=== PATIENT | female | born 1965 | race Caucasian/White ===

== ENCOUNTER 2019-09-12 16:05 | Outpatient (CLI) | payer OTHER, SELFPAY ==
--- NOTE | ~2019-09-12 | MM_ITS ---
EXAMINATION: MM screening [facility] BI w zen HISTORY: Screening mammogram TECHNIQUE: Craniocaudal and mediolateral oblique 3-D tomosynthesis images were obtained and synthetic 2-D images were generated. CAD analysis was submitted and interpreted. COMPARISON: 02/13/2008 BREAST PARENCHYMAL COMPOSITION: The breasts are heterogeneously dense, which may obscure small masses . FINDINGS: RIGHT BREAST: A mass is present in the anterior third of the breast 2.5 cm deep to the nipple. LEFT BREAST: There is possible architectural distortion of the upper breast best appreciated 7.8 cm f rom the nipple in the middle third of the breast on the mediolateral oblique view. IMPRESSION: 1. Bilateral breast findings as described above. 2. Additional mammographic views and possible breast ultrasound are recommended. BI-RADS Category 0: Incomplete: Needs additional imaging evaluation. Reviewed, dictated and finalized at location A. CIAN IMPRESSION: 1. Bilateral breast findings as described above. 2. Additional mammographic views and possible breast ultrasound are recommended . BI-RADS Category 0: Incomplete: Needs additional imaging evaluation.
== END 2019-09-12 16:06 | disposition home or self-care (01) ==
LOC: ANHIMG 16:08
PROVIDERS: PCP Family Medicine Adolescent Medicine; Visit Provider Obstetrics & Gynecology
DX: Z12.31 Encounter for screening mammogram for malignant neoplasm of breast (principal); N63.10 Unspecified lump in the right breast, unspecified quadrant; R92.8 Other abnormal and inconclusive findings on diagnostic imaging of breast
CPT/HCPCS: 77063; 77067

== ENCOUNTER 2019-10-08 11:29 | Outpatient (CLI) | payer OTHER, SELFPAY ==
--- NOTE | ~2019-10-08 | MMUS_ITS ---
EXAMINATION: MM diagnostic mammo BI, US breast RT limited HISTORY: Follow-up breast asymmetries TECHNIQUE: Additional 3-D tomosynthesis images of the breasts were performed and synthetic 2-D images were generated. CAD analysis was submitted and interpreted. High resolution Limited right breast ult rasound was performed. COMPARISON: 09/12/2019 FINDINGS: MAMMOGRAPHIC FINDINGS: The breasts are heterogenously dense, which may obscure small masses. There are no suspicious masses, calcifications or architectural distortion in the left breast to suggest malignancy. In the subareol ar location of the right breast there is a focal 1 cm mass partially obscured by dense fibroglandular tissue. ULTRASOUND: Limited right breast ultrasound: In the periareolar location of the right breast there is a cluster of cysts measuring 11 mm maximum d imension corresponding to the mammographic finding. No suspicious masses to suggest malignancy. IMPRESSION: 1. No evidence for malignancy in either breast. 2. Routine yearly screening mammogram and regular clinical breast examination are recommended. BI-RADS Category 2: Benign finding(s). Reviewed, dictated and finalized at location A. IMPRESSION: 1. No evidence for malignancy in either breast. 2. Routine yearly screening mammogram and regular clinical breast examination a re recommended. BI-RADS Category 2: Benign finding(s).
== END 2019-10-08 11:30 | disposition home or self-care (01) ==
LOC: ANHIMG 11:32
PROVIDERS: PCP Family Medicine Adolescent Medicine; Visit Provider Obstetrics & Gynecology
DX: R92.8 Other abnormal and inconclusive findings on diagnostic imaging of breast (principal)
CPT/HCPCS: 76642; 77066

== ENCOUNTER 2020-11-04 15:45 | Outpatient (CLI) | payer OTHER, SELFPAY ==
--- NOTE | ~2020-11-04 | MM_ITS ---
EXAMINATION: MM screening [facility] BI w zen HISTORY: Screening TECHNIQUE: Craniocaudal and mediolateral oblique 3-D tomosynthesis images were obtained and synthetic 2-D images were generated. CAD analysis was submitted and interpreted. COMPARISON: 10/08/2019 and 09/12/2019 BREAST PARENCHYMAL COMPOSITION: There are scattered areas of fibroglandular density. FINDINGS: Stable appearance to the periareolar right breast mass which was previously characterized a s a cyst by ultrasound. There are no new masses, calcifications or architectural distortion to sugges t malignancy. There is no evidence of suspicious mass, calcification, or architectural distortion to suggest malignancy in either breast. There has been no suspicious interval change. IMPRESSION: 1. No mammographic evidence of malignancy. 2. Recommend routine screening mammography in one year. BI-RADS Category 2: Benign finding(s). Reviewed, dictated and finalized at location A.
== END 2020-11-04 15:46 | disposition home or self-care (01) ==
LOC: ANHIMG 15:48
PROVIDERS: PCP Family Medicine Adolescent Medicine; Visit Provider Obstetrics & Gynecology
DX: Z12.31 Encounter for screening mammogram for malignant neoplasm of breast (principal)
CPT/HCPCS: 77063; 77067

== ENCOUNTER 2021-12-24 15:38 | Outpatient (CLI) | payer OTHER, SELFPAY ==
--- NOTE | ~2021-12-24 | MM_ITS ---
EXAMINATION: MM screening [facility] BI w zen HISTORY: Screening mammogram TECHNIQUE: Craniocaudal and mediolateral oblique 3-D tomosynthesis images were obtained and synthetic 2-D images were generated. CAD analysis was submitted and interpreted. COMPARISON: 11/04/2020 bilateral screening mammogram 10/08/2019 bilateral diagnostic mammogram and limited right breast ultrasound 09/12/2019 bilateral screening mammogram BREAST PARENCHYMAL COMPOSITION: There are scattered areas of fibroglandular density. FINDINGS: Scattered bilateral benign calcifications. There is no evidence of suspicious mass, calcification, or architectural distortion to suggest malignancy in either breast. There has been no suspicious interv al change. IMPRESSION: 1. No mammographic evidence of malignancy. 2. Recommend routine screening mammography in one year. BI-RADS Category 2: Benign finding(s). Reviewed, dictated and finalized at location A.
== END 2021-12-24 15:39 | disposition home or self-care (01) ==
PROVIDERS: PCP Family Medicine Adolescent Medicine; Visit Provider Obstetrics & Gynecology
DX: Z12.31 Encounter for screening mammogram for malignant neoplasm of breast (principal)
CPT/HCPCS: 77063; 77067

== ENCOUNTER 2022-03-19 01:17 | Day surgery (SDC) | payer OTHER, SELFPAY ==
--- NOTE | 2022-03-18 16:24 | PM.HPGS ---
History of Present Illness History of Present Illness Consent: Risks, benefits, and alternatives have been discussed and questions answered. Patient agrees to proceed with procedure. Chief complaint: hx of colon polyps, neoplasm screening Narrative: Padmini Toribio is a 57 year old female Referred for colon cancer screening. She had 2 polyps removed about 5 years ago. Also, her father had colon cancer. Review of Systems Review of Systems: All systems reviewed & are unremarkable except as noted in HPI and below PMFSH Past Medical History Medical History Post-menopausal Vaginal prolapse (~05/2018) Surgical History Surgical History H/O dilation and curettage (2011) x 2 History of sacrocolpopexy (05/2018) S/P VERO (total abdominal hysterectomy) (2013) Family History Family History Father Hypertension Acute myocardial infarction Heart disease Mother Hypertension Grandparent Carcinoma of colon Sibling Diabetes mellitus Social History Social History Smoking status: Never smoker Second hand tobacco smoke exposure: No Alcohol intake: current Drinks per week: 3 Alcohol use details: one drink per week Substance use: never Substance use type: does not use Living arrangements: with family Gender identity (if verbalized by the patient): Female Sexual Orientation (if Verbalized by the Patient): Straight or Heterosexual Spiritual care concerns: No Agree to blood products: Yes Meds Home Medications and Allergies Home Medications Medication Instructions Recorded Confirmed Type estradiol 0.1 mg/24 hr semiweekly 1 patch transdermal 2XW 01/11/22 03/19/22 History transdermal patch lisinopril 10 1 tablet PO DAILY 03/04/22 03/19/22 History mg-hydrochlorothiazide 12.5 mg tablet terbinafine HCl 250 mg tablet 250 mg PO DAILY 03/04/22 03/19/22 History Allergies Allergy/AdvReac Type Severity Reaction Status Date / Time No Known Allergies Allergy Verified 03/19/22 07:17 Exam Resp: Auscultation: clear to auscultation bilaterally Cardio: Rate: regular rate Rhythm: regular rhythm GI: GI Palp: Yes Soft to palpation and No Tenderness to palpation present (GI) Assessment and Plan Assessment and plan (1) Colon cancer screening: Code(s): Z12.11 - Encounter for screening for malignant neoplasm of colon Status: Acute Assessment and Plan: Colonoscopy with possible biopsy or polypectomy or cautery or injection of substances.
[2022-03-19 07:18] VITALS: BP 138/79; PULSE 72; RESP 17; TEMP 37; O2SAT 99; BMI 30.9
[2022-03-19] MEDS: LACTATED RINGERS 1,000 ML 150 ML IV CONT (07:25)
--- NOTE | 2022-03-19 07:46 | WPDANESEPPF ---
Anes - Initial Pre Proc Eval Procedure: Operation Date: 03/19/22 08:30 Proposed Procedures p Screening Colonoscopy - Jax Rick MD Date/Time: 03/19/22 07:46 Surgeon: Jax Rick MD Pre Op Diagnosis: hx of colon polyps, neoplasm screening Patient Data Age: 57 Gender: F Height: 1.63 m Weight: 81.7 kg Last Vital Signs Temp 98.6 F 03/19/22 07:18 Pulse 72 03/19/22 07:18 Resp 17 03/19/22 07:18 BP 138/79 03/19/22 07:18 Pulse Ox 99 03/19/22 07:18 O2 Del Method Room Air 03/19/22 07:18 Allergies Allergy/AdvReac Type Severity Reaction Status Date / Time No Known Allergies Allergy Verified 03/19/22 07:17 Home Medications Medication Instructions Recorded Confirmed Type estradiol 0.1 mg/24 hr semiweekly 1 patch transdermal 2XW 01/11/22 03/19/22 History transdermal patch lisinopril 10 1 tablet PO DAILY 03/04/22 03/19/22 History mg-hydrochlorothiazide 12.5 mg tablet terbinafine HCl 250 mg tablet 250 mg PO DAILY 03/04/22 03/19/22 History Patient hx anesthesia problems: none Family hx anesthesia problems: none Results Review: All pre-operative results and documents have been reviewed as part of the pre-operative evaluation. [facility] Past Medical History Medical History Post-menopausal Vaginal prolapse (~05/2018) Surgical History Surgical History H/O dilation and curettage (2011) x 2 History of sacrocolpopexy (05/2018) S/P VERO (total abdominal hysterectomy) (2013) Family History Family History (Updated 01/11/22 @ 15:07 by Ortega Salas MA) Father Hypertension Acute myocardial infarction Heart disease Mother Hypertension Grandparent Carcinoma of colon Sibling Diabetes mellitus Social History Social History (Updated 01/11/22 @ 15:07 by Ortega Salas MA) Smoking status: Never smoker Second hand tobacco smoke exposure: No Alcohol intake: current Drinks per week: 3 Alcohol use details: one drink per week Substance use: never Substance use type: does not use Living arrangements: with family Gender identity (if verbalized by the patient): Female Sexual Orientation (if Verbalized by the Patient): Straight or Heterosexual Spiritual care concerns: No Agree to blood products: Yes Anes - Eval Final PreProcedure Day of Procedure 03/19/22 07:46 Patient weight: obese Heart: regular rate and rhythm Lungs: clear to auscultation Airway: Mallampati scale class II Neurological: alert and oriented Last oral intake: >/= 8 hours ASA classification: II Emergent: no Anesthetic plan: proceed Anesthesia type and monitoring: general GIVS and standard monitoring Results Review: All pre-operative results and documents have been reviewed as part of the pre-operative evaluation. Informed Consent: The patient's anesthetic plan and its attendant risks and benefits were discussed with the patient/family/POA. Questions were solicited and answers provided to the satisfaction of the patient/family/POA.
[2022-03-19 08:39] VITALS: BP 121/74; PULSE 66; RESP 18; O2SAT 98
[2022-03-19 08:49] VITALS: BP 101/62; PULSE 68; RESP 18; O2SAT 98
[2022-03-19 08:59] VITALS: BP 105/56; PULSE 60; RESP 20; O2SAT 99
== END 2022-03-19 09:10 | disposition home or self-care (01) ==
PROVIDERS: PCP Family Medicine Adolescent Medicine; Visit Provider Internal Medicine Gastroenterology
PROC: 0DJD8ZZ Inspection of Lower Intestinal Tract, Via Natural or Artificial Opening Endoscopic (ICD-10-PCS; CPT 45378; principal; 2022-03-19 08:30)
DX: Z12.11 Encounter for screening for malignant neoplasm of colon (principal); Z86.010 Personal history of colon polyps; K57.30 Diverticulosis of large intestine without perforation or abscess without bleeding; E66.9 Obesity, unspecified; Z68.30 Body mass index [BMI] 30.0-30.9, adult
CPT/HCPCS: 45378; J2704; J7120

== ENCOUNTER 2023-04-09 11:28 | Outpatient (CLI) | payer OTHER, SELFPAY ==
--- NOTE | ~2023-04-09 | MM_ITS ---
EXAMINATION: MM screening [facility] BI w zen HISTORY: Screening mammogram TECHNIQUE: Craniocaudal and mediolateral oblique 3-D tomosynthesis images were obtained and synthetic 2-D images were generated. CAD analysis was submitted and interpreted. COMPARISON: 12/24/2021, 11/04/2020 bilateral screening mammogram examinations BREAST PARENCHYMAL COMPOSITION: The breasts are heterogeneously dense, which may obscure small masses . FINDINGS: Scattered bilateral benign appearing calcifications. There is no evidence of suspicious mas s, calcification, or architectural distortion to suggest malignancy in either breast. There has been no suspicious interval change. IMPRESSION: 1. No mammographic evidence of malignancy. 2. Recommend routine screening mammography in one year. BI-RADS Category 2: Benign finding(s). Reviewed, dictated and finalized at location A.
== END 2023-04-09 11:29 | disposition home or self-care (01) ==
PROVIDERS: PCP Family Medicine Adolescent Medicine; Visit Provider Obstetrics & Gynecology
DX: Z12.31 Encounter for screening mammogram for malignant neoplasm of breast (principal)
CPT/HCPCS: 77063; 77067

== ENCOUNTER 2024-05-22 08:33 | Outpatient (CLI) | payer OTHER, SELFPAY ==
--- NOTE | ~2024-05-22 | MM_ITS ---
EXAMINATION: MM screening [facility] BI w zen HISTORY: Screening mammogram, family history of breast cancer in her daughter. TECHNIQUE: Craniocaudal and mediolateral oblique 3-D tomosynthesis images were obtained and synthetic 2-D images were generated. CAD analysis was submitted and interpreted. COMPARISON: 04/09/2023, 12/24/2021, 11/04/2020 BREAST PARENCHYMAL COMPOSITION:Dense: The breasts are heterogeneously dense, which may obscure small masses. FINDINGS: No suspicious mass, calcification, or architectural distortion are identified in either cristal ast to suggest malignancy. There has been no suspicious interval change. IMPRESSION: No mammographic evidence of malignancy. Recommend routine screening mammography in one year. BI-RADS Category 1: Negative Reviewed, dictated and finalized at location .
== END 2024-05-22 08:34 | disposition home or self-care (01) ==
LOC: ANHIMG 08:34
PROVIDERS: PCP Family Medicine Adolescent Medicine; Visit Provider Obstetrics & Gynecology
DX: Z12.31 Encounter for screening mammogram for malignant neoplasm of breast (principal)
CPT/HCPCS: 77063; 77067

== ENCOUNTER 2025-06-27 16:05 | Outpatient (CLI) | payer OTHER, SELFPAY ==
--- NOTE | ~2025-06-27 | MM_ITS ---
EXAMINATION: MM screening [facility] BI w zen HISTORY: Screening. TECHNIQUE: Craniocaudal and mediolateral oblique 3-D tomosynthesis images were obtained and synthetic 2-D images were generated. CAD analysis was submitted and interpreted. COMPARISON: 2023, 2022, and 2021. BREAST PARENCHYMAL COMPOSITION: Dense: The breasts are heterogeneously dense FINDINGS: No suspicious masses are seen. There are no suspicious calcifications. No unexplained architectural distortion is seen. There are no skin or nipple abnormalities identified. There is no adenopathy seen on the images submitted. IMPRESSION: No mammographic evidence to suggest malignancy is seen. The patient may return to screening mammography as per ACR guidelines. BI-RADS 1 - Negative. Reviewed, dictated and finalized at location C. GAN CLERK
== END 2025-06-27 16:06 | disposition home or self-care (01) ==
LOC: ANHFOHIMG 16:07
PROVIDERS: PCP Family Medicine Adolescent Medicine; Visit Provider Obstetrics & Gynecology
DX: Z12.31 Encounter for screening mammogram for malignant neoplasm of breast (principal)
CPT/HCPCS: 77063; 77067